=== PATIENT | female | born 1960 | race Caucasian/White ===

== ENCOUNTER → 2020-09-06 | Outpatient (CLI) | payer MEDICARE ==
--- NOTE | 2020-09-08 11:07 | RAD ---
DATE: 09/06/2020 12:27 PM EXAM: MAMMO [facility] SCREENING BILATERAL HISTORY: Screening COMPARISON: 10/29/2017 Bilateral CC and MLO views of the breasts were performed. Bilateral breast tomosynthesis was performed in CC and MLO projections. This study was interpreted with the benefit of Computerized Aided Detection (CAD). FINDINGS: Breast Density: SCATTERED The breast parenchyma shows scattered fibroglandular densities. Breast parenchyma level B New mammographically benign 5 mm round skin lesion in the inferior medial left breast at the approximate 7:00 position 8 cm from the nipple. No suspicious masses, microcalcifications or architectural distortion is present to suggest malignancy in either breast. The visualized axillae are unremarkable. IMPRESSION: No mammographic evidence of malignancy. BI-RADS CATEGORY: 2 BENIGN FINDING(S) RECOMMENDED FOLLOW-UP: 12M 12 MONTH FOLLOW-UP Annual screening mammography is recommended, unless clinically indicated sooner based on symptoms or change in physical exam. PQRS compliance statement: Patient information was entered into a reminder system with a target due date for the next mammogram. Mammography is a sensitive method for finding small breast cancers, but it does not detect them all and is not a substitute for careful clinical examination. A negative mammogram does not negate a clinically suspicious finding and should not result in delay in biopsying a clinically suspicious abnormality. "Our facility is accredited by the [employer] Mammography Program."
== END ==
LOC: MAMMO 11:28
PROVIDERS: ATTEND Family Medicine
DX: Z12.31 Encounter for screening mammogram for malignant neoplasm of breast (principal)
CPT/HCPCS: 77063; 77067